=== PATIENT | male | born 1950 | race Caucasian/White ===

== ENCOUNTER 2021-10-18 07:37 | Emergency (ER) | payer OTHER ==
[~2021-10-18] VITALS: Ht 170.2 cm; Wt 113.4 kg
[~2021-10-18 07:37] MED LIST: ACIDOPHILUS1 EAC1 PO; ALTACE10 MG; ASA325 M1; COREG CR20 MG; COZAAR100 MG; LEVAQUIN500 MG PO; LIPITOR20 MG; PLAVIX75 MG
[2021-10-18] MEDS ORDERED: XARELTO20 MG (07:57)
[2021-10-18] MEDS ORDERED: LYRICA150 MG PO (07:58)
[2021-10-18] MEDS ORDERED: JARDIANCE25 MG PO (07:58)
[2021-10-18] MEDS ORDERED: METFORMIN HCL500 MG (07:58)
[2021-10-18] MEDS ORDERED: LIPITOR20 MG PO (07:59)
[2021-10-18] MEDS ORDERED: CYMBALTA30 MG PO (07:59)
[2021-10-18] MEDS ORDERED: ZYRTEC10 M3 PO (08:00)
[2021-10-18] MEDS ORDERED: SINGULAIR10 MG PO (08:00)
[2021-10-18] MEDS ORDERED: MICARDIS20 MG PO (08:03)
[2021-10-18] MEDS ORDERED: CHLOROTHIAZIDE PO (08:05)
[2021-10-18] MEDS ORDERED: VITAMIN D32400 UNIT/ MC (08:06)
== END 2021-10-18 10:46 | disposition home or self-care (01) ==
LOC: ER 07:37
DX: N45.1 Epididymitis (principal); Z91.013 Allergy to seafood; Z88.8 Allergy status to other drugs, medicaments and biological substances; E11.9 Type 2 diabetes mellitus without complications; Z79.84 Long term (current) use of oral hypoglycemic drugs; I49.9 Cardiac arrhythmia, unspecified; E78.00 Pure hypercholesterolemia, unspecified; I10 Essential (primary) hypertension